=== PATIENT | male | born 1995 | race Hispanic/Latino ===

== ENCOUNTER 2017-10-08 20:42 | Emergency (ER) | payer SELFPAY ==
[~2017-10-08] VITALS: Ht 165.1 cm; Wt 59.0 kg
[2017-10-09] MEDS ORDERED: AMOXICILLIN500 MG PO (00:06)
[2017-10-09] MEDS ORDERED: PERCOCET 5/325M1 TAB PO (00:06)
[2017-10-09 00:58] VITALS: BP 121/75
== END 2017-10-09 00:30 | disposition home or self-care (01) | DRG 155 ==
LOC: ED 20:42
PROC: 2W3DX1Z Immobilization of Left Lower Arm using Splint (ICD-10-PCS; principal; 2017-10-09)
DX: S02.2XXA Fracture of nasal bones, initial encounter for closed fracture (principal); S52.202A Unspecified fracture of shaft of left ulna, initial encounter for closed fracture; S52.502A Unspecified fracture of the lower end of left radius, initial encounter for closed fracture; V29.49XA Motorcycle driver injured in collision with other motor vehicles in traffic accident, initial encounter; Y92.410 Unspecified street and highway as the place of occurrence of the external cause; Y93.I9 Activity, other involving external motion